=== PATIENT | female | born 1940 | race Caucasian/White ===

== ENCOUNTER → 2016-11-22 | Outpatient (CLI) | payer OTHER, MEDICARE | LOC: BMCIMAGING 08:04 | PROVIDERS: ATTEND Physician Assistant | DX: Z12.31 Encounter for screening mammogram for malignant neoplasm of breast (principal) | CPT/HCPCS: G0202 ==

== ENCOUNTER 2018-07-20 07:03 | Emergency (ER) | payer OTHER, MEDICARE ==
[2018-07-20] MEDS ORDERED: NS 1,000 ML IV ONE (07:04)
--- NOTE | 2018-07-20 07:33 | EDPHY ---
HPI/HX/ROS/PE/MDM Narrative: CHIEF COMPLAINT: Fast heart rate, weakness HPI: The patient is a 77-year-old female with a history of seizure disorder and hypothyroidism. She has been her usual state of health until this morning at approximately 3:00 a.m. When she became aware of a fluttering in her chest. This persisted on and off through the course of the morning. When she went outside to go get the newspaper around 6:00 a.m., she felt very weak, like she was going to pass out. She did not lose consciousness and the symptoms resolved. EMS on arrival noted atrial fibrillation with rapid ventricular response. On route to the hospital, the patient was given aspirin and was noted to convert to normal sinus rhythm. Patient denies any chest pain or shortness of breath at any time. She states she has felt this fluttering in her heart for but has never gotten a workup for it. No recent change in her thyroid medication dosage. REVIEW OF SYSTEMS: Aside from elements discussed in the HPI, a comprehensive 10-point review of systems was reviewed and is negative. PMH: Includes seizure disorder, history of negative cardiac workup, no known cardiac dysrhythmias. SOCIAL HISTORY: . Denies alcohol or drug abuse. PHYSICAL EXAM: General:Patient is alert, in no acute distress. ENT:Eyes are normal to inspection. ENT inspection normal. Neck: Normal inspection. Full range of motion. Respiratory:No respiratory distress. Breath sounds normal bilaterally. Cardiovascular: Regular rhythm. Strong peripheral pulses. Normal cap refill. Abdomen:The abdomen is nontender to palpation. There are no peritoneal signs. There are normal bowel sounds. Back: Normal to inspection. No tenderness to palpation. Skin: Normal color. No rash. Warm and dry. Extremities: Normal appearance. Full range of motion. Neuro: Oriented x3. Normal motor function. Normal sensory function. ED Course: EKG was ordered and interpreted by myself. Please see [employer] system for official reading. This patient presents with an episode of atrial fibrillation that has self resolved. Given her history, it sounds like she is likely having recurrent episodes of paroxysmal atrial fibrillation. I spoke to Dr. Tafoya when checked, who is covering for the patient's primary physician. He agrees that the patient is likely a candidate for anticoagulation. He will follow her closely I discussed options with Dr. Campos and the patient may have elected to go ahead and start Eliquis this time pending full evaluation by their office. I did discuss the fact that the patient has a history of seizure disorder with Dr. Campos. MDM: This patient presents with an episode of rapid a-fib which has self-resolved. There is no history of chest pain or abnormal ECG findings to suggest ACS or PE. No sign of hyperthyroidism or electrolyte disturbance. - Data Points Laboratory Results: Laboratory Results 07/20/18 07:37 07/20/18 07:37 07/20/18 07/20/18 07/20/18 07:37 07:37 07:32 WBC 4.32 10^3/uL 10^3/uL (3.80-9.50) RBC 4.50 10^6/uL 10^6/uL (4.18-5.33) Hgb 14.6 g/dL g/dL (12.6-16.3) Hct 44.2 % % (38.0-47.0) MCV 98.2 fL fL (81.5-99.8) MCH 32.4 pg pg (27.9-34.1) MCHC 33.0 g/dL g/dL (32.4-36.7) RDW 12.7 % % (11.5-15.2) Plt Count 208 10^3/uL 10^3/uL (150-400) MPV 11.4 fL fL (8.7-11.7) Neut % (Auto) 48.3 % % (39.3-74.2) Lymph % (Auto) 38.7 % % (15.0-45.0) [place] % (Auto) 7.6 % % (4.5-13.0) Eos % (Auto) 3.5 % % (0.6-7.6) Baso % (Auto) 1.2 % % (0.3-1.7) Nucleat RBC Rel Count 0.0 % % (0.0-0.2) Absolute Neuts (auto) 2.09 10^3/uL 10^3/uL (1.70-6.50) Absolute Lymphs (auto) 1.67 10^3/uL 10^3/uL (1.00-3.00) Absolute Monos (auto) 0.33 10^3/uL 10^3/uL (0.30-0.80) Absolute Eos (auto) 0.15 10^3/uL 10^3/uL (0.03-0.40) Absolute Basos (auto) 0.05 10^3/uL 10^3/uL (0.02-0.10) Absolute Nucleated RBC 0.00 10^3/uL 10^3/uL (0-0.01) Immature Gran % 0.7 % % (0.0-1.1) Immature Gran # 0.03 10^3/uL 10^3/uL (0.00-0.10) Sodium 141 mEq/L mEq/L (135-145) Potassium 5.1 mEq/L mEq/L (3.5-5.2) Chloride 106 mEq/L mEq/L (97-110) Carbon Dioxide 27 mEq/l mEq/l (22-31) Anion Gap 8 mEq/L mEq/L (6-14) BUN 16 mg/dL mg/dL (7-23) Creatinine 0.7 mg/dL mg/dL (0.6-1.0) Estimated GFR > 60 Glucose 123 mg/dL H mg/dL (70-100) Calcium 9.2 mg/dL mg/dL (8.5-10.4) POC Troponin I 0.05 ng/mL ng/mL (0.00-0.08) TSH 4.780 uIU/mL H uIU/mL (0.465-4.680) Medications Given: Discontinued Medications Sodium Chloride (Ns) 1,000 mls @ 0 mls/hr IV EDNOW ONE; Wide Open PRN Reason: Protocol Stop: 07/20/18 07:05 Last Admin: 07/20/18 07:19 Dose: 1,000 mls Point of Care Test Results: Chemistry 07/20/18 07:32 POC Troponin I 0.05 ng/mL ng/mL (0.00-0.08) General Time Seen by Provider: 07/20/18 07:04 Initial Vital Signs: Initial Vital Signs Temperature (C) 37 C 07/20/18 07:03 Heart Rate 120 H 07/20/18 07:03 Respiratory Rate 16 07/20/18 07:03 Blood Pressure 157/109 H 07/20/18 07:03 O2 Sat (%) 94 07/20/18 07:03 O2 Delivery Mode Room Air Allergies/Adverse Reactions: No Allergies [NKA] Allergy (Verified 05/02/13 08:39) Home Medications: Medication Instructions Recorded Herbals/Supplements -Info Only 1 ea PO DAILY 12/23/13 levETIRAcetam [Keppra 250 mg (*)] 250 mg PO BID #60 tab 11/19/14 levOFLOXACIN 750 mg PO DAILY #7 tab 11/19/14 Apixaban [Eliquis] 5 mg PO BID #14 tab 07/20/18 Departure - Departure Disposition: Home, Routine, Self-Care Clinical Impression: Atrial fibrillation Condition: Good Instructions: A-fib (Atrial Fibrillation) (ED) Additional Instructions: Follow-up with your primary doctor within 72 hours. Return to the Emergency Department for fever, chest pain, shortness of breath, increasing pain or other worsening of condition. Follow up with your primary physician within 72 hr. Referrals: Darrell Price PA [Primary Care Provider] - As per Instructions Prescriptions: Apixaban [Eliquis] 5 mg PO BID #14 tab
[2018-07-20 07:44] LABS: PLATELET COUNT 208 10^3/uL (150-400)
[2018-07-20 09:13] VITALS: BP 130/89
--- NOTE | 2018-07-20 15:16 | CPEKG ---
Test Reason : OPEN Blood Pressure : / mmHG Vent. Rate : 111 BPM Atrial Rate : 111 BPM P-R Int : 181 ms QRS Dur : 095 ms QT Int : 345 ms P-R-T Axes : 025 -68 030 degrees QTc Int : 469 ms Sinus tachycardia Probable left ventricular hypertrophy Inferior infarct, old Confirmed by Jas Ervin ([id number] on 07/20/2018 3:15:40 PM Referred By: Jas Ervin Confirmed By:Jas Ervin
== END 2018-07-20 09:12 | disposition home or self-care (01) ==
LOC: EDUNIT#
DX: I48.91 Unspecified atrial fibrillation (principal); E86.9 Volume depletion, unspecified
CPT/HCPCS: 84484-ER